=== PATIENT | male | born 1960 | race Caucasian/White ===

== ENCOUNTER 2017-07-28 10:08 | Day surgery (SDC) | payer OTHER ==
[2017-07-28 11:07] LABS: ADD MAN DIFF? NO
[2017-07-28 11:15] LABS: BASOPHILS % 0.4 % (0.0-2.0); EOSINOPHILS # 0.4 10^3/ul (0.0-0.5); EOSINOPHILS % 6.9 % (0.0-7.0); HEMATOCRIT 37.1 % (42.0-52.0); HEMOGLOBIN 12.4 g/dl (14.0-18.0); LYMPHOCYTES # 1.2 10^3/ul (0.8-2.9); LYMPHOCYTES % 23.7 % (15.0-51.0); MEAN CORPUSCULAR HEMOGLOBIN 31.8 pg (29.0-33.0); MEAN CORPUSCULAR HGB CONC 33.4 g/dl (32.0-37.0); MEAN CORPUSCULAR VOLUME 95.1 fl (82.0-101.0); MEAN PLATELET VOLUME 9.1 fl (7.4-10.4); MONOCYTE # 0.6 10^3/ul (0.3-0.9); MONOCYTES % 11.1 % (0.0-11.0); NEUTROPHIL # 2.9 10^3/ul (1.6-7.5); NEUTROPHILS % 57.5 % (39.0-77.0); PLATELET COUNT 146 10^3/UL (140-415); RED CELL DISTRIBUTION WIDTH 12.7 % (11.5-14.5)
[2017-07-28 11:15] LABS: WHITE BLOOD COUNT 5.1 10^3/ul (4.8-10.8)
[2017-07-28 11:21] LABS: ALANINE AMINOTRANSFERASE 14 IU/L (13-69); ALBUMIN 4.2 g/dl (3.3-4.9); ALBUMIN/GLOBULIN RATIO 1.16; ALKALINE PHOSPHATASE 76 IU/L (42-121); ANION GAP 22 (8-16); ASPARTATE AMINO TRANSFERASE 13 IU/L (15-46); BILIRUBIN,INDIRECT 0.5 mg/dl (0-1.1); BILIRUBIN,TOTAL 0.5 mg/dl (0.2-1.3); CARBON DIOXIDE 30 mmol/L (21-31); CHLORIDE 98 mmol/L (97-110); GLUCOSE 84 mg/dl (70-220); TOTAL PROTEIN 7.8 g/dl (6.1-8.1)
[2017-07-28 11:28] LABS: POTASSIUM 4.6 mmol/L (3.5-5.1)
[2017-07-28 11:31] LABS: BLOOD UREA NITROGEN 40 mg/dl (7-20); CALCIUM 7.8 mg/dl (8.4-10.2); CREATININE 7.85 mg/dl (0.61-1.24); SODIUM 145 mmol/L (135-144)
[2017-07-28] MEDS ORDERED: HEPARIN 1000 UNITS/NS (A-LINE) 1,000 ML (12:08)
[2017-07-28] MEDS ORDERED: MIDAZOLAM 1 MG/ML 2 ML INJ (12:08)
[2017-07-28] MEDS ORDERED: FENTAnyl 50 MCG/ML VIAL (12:08)
[2017-07-28] MEDS ORDERED: LIDOCAINE 1% (MDV) 20 ML INJ (12:08)
[2017-07-28] MEDS ORDERED: IODIXANOL LOCM 100 ML BTL (12:09)
[2017-07-28 12:11] LABS: INR 0.98; PROTIME 13.1 Sec (11.9-14.9)
[2017-07-28 12:12] LABS: PARTIAL THROMBOPLASTIN TIME 30.8 Sec (25.0-35.0)
== END 2017-07-28 13:25 | disposition home or self-care (01) ==
LOC: SDS 10:08
DX: T82.898A Other specified complication of vascular prosthetic devices, implants and grafts, initial encounter (principal); Y84.1 Kidney dialysis as the cause of abnormal reaction of the patient, or of later complication, without mention of misadventure at the time of the procedure; I12.0 Hypertensive chronic kidney disease with stage 5 chronic kidney disease or end stage renal disease; N18.6 End stage renal disease
CPT/HCPCS: 36901; 36907; 80053; 85025; 85610; 85730

== ENCOUNTER 2017-09-25 13:37 | Emergency (ER) | payer OTHER ==
[2017-09-25] MEDS: DIPHTH/TET/ACEL PERTUSS (ADULT) 0.5 ML VIAL IM (15:31)
== END 2017-09-25 15:37 | disposition home or self-care (01) ==
LOC: FTE 13:37
DX: S81.852A Open bite, left lower leg, initial encounter (principal); I50.9 Heart failure, unspecified; I12.9 Hypertensive chronic kidney disease with stage 1 through stage 4 chronic kidney disease, or unspecified chronic kidney disease; N18.9 Chronic kidney disease, unspecified; N18.6 End stage renal disease; W54.0XXA Bitten by dog, initial encounter; Y92.9 Unspecified place or not applicable; Z23 Encounter for immunization
CPT/HCPCS: 90471; 90715; 99283-25

== ENCOUNTER 2018-02-07 17:29 | Emergency (ER) | payer OTHER ==
[2018-02-07 17:52] LABS: ADD MAN DIFF? NO
[2018-02-07 18:03] LABS: BASOPHILS % 0.6 % (0.0-2.0); EOSINOPHILS # 0.3 10^3/ul (0.0-0.5); EOSINOPHILS % 4.6 % (0.0-7.0); HEMATOCRIT 47.3 % (42.0-52.0); HEMOGLOBIN 15.3 g/dl (14.0-18.0); LYMPHOCYTES # 1.2 10^3/ul (0.8-2.9); LYMPHOCYTES % 22.9 % (15.0-51.0); MEAN CORPUSCULAR HEMOGLOBIN 30.8 pg (29.0-33.0); MEAN CORPUSCULAR HGB CONC 32.3 g/dl (32.0-37.0); MEAN CORPUSCULAR VOLUME 95.2 fl (82.0-101.0); MEAN PLATELET VOLUME 9.9 fl (7.4-10.4); MONOCYTE # 0.5 10^3/ul (0.3-0.9); MONOCYTES % 9.9 % (0.0-11.0); NEUTROPHIL # 3.3 10^3/ul (1.6-7.5); NEUTROPHILS % 61.8 % (39.0-77.0); PLATELET COUNT 133 10^3/UL (140-415); RED BLOOD COUNT 4.97 10^6/ul (4.70-6.10); RED CELL DISTRIBUTION WIDTH 13.1 % (11.5-14.5)
[2018-02-07 18:03] LABS: WHITE BLOOD COUNT 5.4 10^3/ul (4.8-10.8)
[2018-02-07 18:19] LABS: PROTIME 13.3 Sec (11.9-14.9)
[2018-02-07 18:28] LABS: ALANINE AMINOTRANSFERASE 15 IU/L (13-69); ALBUMIN 5.2 g/dl (3.3-4.9); ALBUMIN/GLOBULIN RATIO 2.47; ALKALINE PHOSPHATASE 96 IU/L (42-121); ANION GAP 21 (5-13); ASPARTATE AMINO TRANSFERASE 15 IU/L (15-46); BILIRUBIN,INDIRECT 0.2 mg/dl (0-1.1); BILIRUBIN,TOTAL 0.2 mg/dl (0.2-1.3); BLOOD UREA NITROGEN 69 mg/dl (7-20); CALCIUM 7.6 mg/dl (8.4-10.2); CARBON DIOXIDE 25 mmol/L (21-31); CHLORIDE 96 mmol/L (97-110); CREATININE 11.38 mg/dl (0.61-1.24); Estimated GFR 5 mL/min (>60); GLUCOSE 98 mg/dl (70-220); SODIUM 142 mmol/L (135-144); TOTAL PROTEIN 7.3 g/dl (6.1-8.1)
[2018-02-07 18:38] LABS: TROPONIN-I 0.036 ng/ml (0.000-0.120)
== END 2018-02-07 19:41 | disposition home or self-care (01) ==
LOC: E/R 17:29
DX: I47.1 Supraventricular tachycardia (principal); I12.0 Hypertensive chronic kidney disease with stage 5 chronic kidney disease or end stage renal disease; N18.6 End stage renal disease; Z99.2 Dependence on renal dialysis
CPT/HCPCS: 71045; 80053; 84484; 85025; 85610; 99285-25

== ENCOUNTER 2018-05-03 12:05 | Inpatient (IN) | payer OTHER ==
[2018-05-03 13:05] LABS: ADD MAN DIFF? NO
[2018-05-03] MEDS: DILTIAZEM 25 MG INJ IV (13:18)
[2018-05-03 13:19] LABS: BASOPHILS % 0.5 % (0.0-2.0); EOSINOPHILS # 0.3 10^3/ul (0.0-0.5); EOSINOPHILS % 5.7 % (0.0-7.0); HEMATOCRIT 47.2 % (42.0-52.0); HEMOGLOBIN 15.5 g/dl (14.0-18.0); LYMPHOCYTES # 1.3 10^3/ul (0.8-2.9); MEAN CORPUSCULAR HEMOGLOBIN 30.3 pg (29.0-33.0); MEAN CORPUSCULAR HGB CONC 32.8 g/dl (32.0-37.0); MEAN CORPUSCULAR VOLUME 92.4 fl (82.0-101.0); MEAN PLATELET VOLUME 10.2 fl (7.4-10.4); MONOCYTE # 0.6 10^3/ul (0.3-0.9); MONOCYTES % 9.4 % (0.0-11.0); NEUTROPHIL # 3.7 10^3/ul (1.6-7.5); NEUTROPHILS % 62.2 % (39.0-77.0); PLATELET COUNT 153 10^3/UL (140-415); RED BLOOD COUNT 5.11 10^6/ul (4.70-6.10); RED CELL DISTRIBUTION WIDTH 13.4 % (11.5-14.5)
[2018-05-03 13:35] LABS: INR 0.91; PROTIME 12.4 Sec (11.9-14.9)
[2018-05-03 13:39] LABS: ALANINE AMINOTRANSFERASE 10 IU/L (13-69); ALBUMIN 4.5 g/dl (3.3-4.9); ALKALINE PHOSPHATASE 101 IU/L (42-121); ASPARTATE AMINO TRANSFERASE 17 IU/L (15-46); BILIRUBIN,INDIRECT 0.5 mg/dl (0-1.1); BILIRUBIN,TOTAL 0.5 mg/dl (0.2-1.3); LIPASE 319 U/L (23-300); TOTAL PROTEIN 7.8 g/dl (6.1-8.1)
[2018-05-03 13:40] LABS: ANION GAP 22 (5-13); BLOOD UREA NITROGEN 68 mg/dl (7-20); CALCIUM 7.7 mg/dl (8.4-10.2); CARBON DIOXIDE 19 mmol/L (21-31); CHLORIDE 102 mmol/L (97-110); CREATININE 12.68 mg/dl (0.61-1.24); Estimated GFR 4 mL/min (>60); GLUCOSE 84 mg/dl (70-220); POTASSIUM 4.8 mmol/L (3.5-5.1); SODIUM 143 mmol/L (135-144)
[2018-05-03 13:50] LABS: TROPONIN-I 0.047 ng/ml (0.000-0.120)
[2018-05-03 13:52] LABS: PHOSPHORUS 12.7 mg/dl (2.5-4.9)
[2018-05-03 13:52] LABS: MAGNESIUM 1.9 mg/dl (1.7-2.5)
[2018-05-03] MEDS: DILTIAZEM-D5W 125MG/125ML DRIP 125 ML IV (13:53)
[2018-05-03 14:15] LABS: B-TYPE NATRIURETIC PEPTIDE 61600 PG/ML (0-125)
[2018-05-03] MEDS ORDERED: ONDANSETRON 4 MG INJ IV (14:30)
[2018-05-03] MEDS ORDERED: ACETAMINOPHEN 325 MG TAB PO (14:30)
[2018-05-03] MEDS ORDERED: NACL 0.9% 3 ML SYG IV (15:30)
[2018-05-03] MEDS ORDERED: DILTIAZEM-D5W 125MG/125ML DRIP 125 ML IV (15:30)
[2018-05-03 15:42] LABS: CREATINE KINASE 113 IU/L (23-200)
[2018-05-03 15:53] LABS: CK-MB 1.78 ng/ml (0.0-2.4)
[2018-05-03 16:10] LABS: ADD MAN DIFF? NO
[2018-05-03 16:13] LABS: BASOPHILS % 0.7 % (0.0-2.0); EOSINOPHILS # 0.3 10^3/ul (0.0-0.5); EOSINOPHILS % 5.2 % (0.0-7.0); HEMATOCRIT 48.4 % (42.0-52.0); HEMOGLOBIN 15.6 g/dl (14.0-18.0); LYMPHOCYTES % 17.9 % (15.0-51.0); MEAN CORPUSCULAR HEMOGLOBIN 29.8 pg (29.0-33.0); MEAN CORPUSCULAR HGB CONC 32.2 g/dl (32.0-37.0); MEAN CORPUSCULAR VOLUME 92.5 fl (82.0-101.0); MEAN PLATELET VOLUME 9.1 fl (7.4-10.4); MONOCYTE # 0.5 10^3/ul (0.3-0.9); MONOCYTES % 7.9 % (0.0-11.0); PLATELET COUNT 131 10^3/UL (140-415); RED BLOOD COUNT 5.23 10^6/ul (4.70-6.10); RED CELL DISTRIBUTION WIDTH 13.5 % (11.5-14.5)
[2018-05-03 16:13] LABS: WHITE BLOOD COUNT 5.8 10^3/ul (4.8-10.8)
[2018-05-03] MEDS: ASPIRIN 81 MG TAB PO (16:15)
[2018-05-03] MEDS: METOPROLOL 50 MG TAB PO ×2 (16:15→22:00)
[2018-05-03 16:29] LABS: INR 0.96; PROTIME 12.9 Sec (11.9-14.9)
[2018-05-03 16:30] LABS: PARTIAL THROMBOPLASTIN TIME 28.4 Sec (23.0-35.0)
[2018-05-03 16:32] LABS: CREATINE KINASE 140 IU/L (23-200)
[2018-05-03 16:44] LABS: CK INDEX 6.3
[2018-05-03 16:48] LABS: CK-MB 8.81 ng/ml (0.0-2.4); TROPONIN-I 0.675 ng/ml (0.000-0.120)
[2018-05-03] MEDS: HEPARIN 25000 UNITS/250 ML 250 ML IV (20:28)
[2018-05-03] MEDS: ATORVASTATIN 20 MG TAB PO (20:50)
[2018-05-03 21:12] LABS: CREATINE KINASE 214 IU/L (23-200)
[2018-05-03 21:25] LABS: CK INDEX 10.4
[2018-05-04 01:14] LABS: CREATINE KINASE 229 IU/L (23-200)
[2018-05-04 01:27] LABS: CK INDEX 9.3
[2018-05-04 03:30] LABS: PARTIAL THROMBOPLASTIN TIME 44.7 Sec (23.0-35.0)
[2018-05-04] MEDS: ZOLPIDEM 5 MG TAB PO (03:35)
[2018-05-04 03:37] LABS: HEMOGLOBIN A1C 4.8 % (0-5.9)
[2018-05-04] MEDS: HEPARIN 1000 UNITS/ML 10 ML INJ IV (03:43)
[2018-05-04] MEDS: HEPARIN 25000 UNITS/250 ML 250 ML IV (03:45)
[2018-05-04] MEDS: METOPROLOL 50 MG TAB PO ×2 (06:00→09:00)
[2018-05-04] MEDS: CALCIUM ACETATE 667 MG CAP GTB ×3 (07:45→17:27)
[2018-05-04] MEDS: SEVELAMER CARBONATE 800 MG TABLET PO ×3 (07:45→17:27)
[2018-05-04] MEDS ORDERED: CINACALCET 30 MG TAB PO (09:00)
[2018-05-04] MEDS ORDERED: ENOXAPARIN 40 MG/0.4 ML SYG SC (09:00)
[2018-05-04] MEDS: ASPIRIN 81 MG TAB PO (09:44)
[2018-05-04 11:48] LABS: HEPATITIS B SURFACE ANTIGEN NEGATIVE (NEGATIVE)
[2018-05-04 12:05] LABS: HEPATITIS B SURFACE ANTIBODY NEGATIVE (NEGATIVE)
[2018-05-04] MEDS ORDERED: FENTAnyl 50 MCG/ML VIAL (15:21)
[2018-05-04] MEDS ORDERED: MIDAZOLAM 1 MG/ML 2 ML INJ (15:21)
[2018-05-04] MEDS ORDERED: NITROGLYCERIN (IC) 100 MCG/ML INJ (16:08)
[2018-05-04] MEDS ORDERED: HEPARIN 1000 UNITS/ML 10 ML INJ (16:08)
[2018-05-04] MEDS ORDERED: VERAPAMIL 5 MG INJ (16:10)
[2018-05-04] MEDS ORDERED: CLOPIDOGREL 300 MG TAB (16:12)
[2018-05-04] MEDS ORDERED: HEPARIN 1000 UNITS/NS (A-LINE) 2,000 ML (16:56)
[2018-05-04] MEDS ORDERED: SOD CHLORIDE 0.9% 500 ML (16:57)
[2018-05-04] MEDS: SOD CHLORIDE 0.9% 1,000 ML IV (21:10)
[2018-05-04] MEDS: ATORVASTATIN 40 MG TAB PO (21:59)
[2018-05-05] MEDS: ZOLPIDEM 5 MG TAB PO (00:34)
[2018-05-05 06:10] LABS: ADD MAN DIFF? NO
[2018-05-05 06:17] LABS: BASOPHILS % 0.6 % (0.0-2.0); EOSINOPHILS # 0.4 10^3/ul (0.0-0.5); EOSINOPHILS % 8.2 % (0.0-7.0); HEMATOCRIT 45.2 % (42.0-52.0); HEMOGLOBIN 14.5 g/dl (14.0-18.0); LYMPHOCYTES # 0.9 10^3/ul (0.8-2.9); MEAN CORPUSCULAR HEMOGLOBIN 30.4 pg (29.0-33.0); MEAN CORPUSCULAR HGB CONC 32.1 g/dl (32.0-37.0); MEAN CORPUSCULAR VOLUME 94.8 fl (82.0-101.0); MEAN PLATELET VOLUME 9.6 fl (7.4-10.4); MONOCYTE # 0.4 10^3/ul (0.3-0.9); MONOCYTES % 9.4 % (0.0-11.0); NEUTROPHIL # 2.9 10^3/ul (1.6-7.5); NEUTROPHILS % 61.4 % (39.0-77.0); PLATELET COUNT 120 10^3/UL (140-415); RED BLOOD COUNT 4.77 10^6/ul (4.70-6.10); RED CELL DISTRIBUTION WIDTH 13.2 % (11.5-14.5)
[2018-05-05 06:17] LABS: WHITE BLOOD COUNT 4.7 10^3/ul (4.8-10.8)
[2018-05-05 06:39] LABS: CREATINE KINASE 112 IU/L (23-200)
[2018-05-05 06:52] LABS: CK INDEX 5.3
[2018-05-05 07:04] LABS: ALANINE AMINOTRANSFERASE 16 IU/L (13-69); ALBUMIN 3.6 g/dl (3.3-4.9); ALKALINE PHOSPHATASE 79 IU/L (42-121); ANION GAP 17 (5-13); ASPARTATE AMINO TRANSFERASE 22 IU/L (15-46); BILIRUBIN,INDIRECT 0.5 mg/dl (0-1.1); BILIRUBIN,TOTAL 0.5 mg/dl (0.2-1.3); BLOOD UREA NITROGEN 49 mg/dl (7-20); CALCIUM 7.7 mg/dl (8.4-10.2); CARBON DIOXIDE 30 mmol/L (21-31); CHLORIDE 92 mmol/L (97-110); CHOL/HDL RATIO 5.6 RATIO; CHOLESTEROL 175 mg/dl (100-200); CREATININE 10.54 mg/dl (0.61-1.24); Estimated GFR 5 mL/min (>60); GLUCOSE 70 mg/dl (70-220); HDL CHOLESTEROL 31 mg/dl (28-71); LDL CHOLESTEROL,CALCULATED 118 mg/dl; MAGNESIUM 1.9 mg/dl (1.7-2.5); POTASSIUM 4.4 mmol/L (3.5-5.1); SODIUM 139 mmol/L (135-144); TOTAL PROTEIN 6.6 g/dl (6.1-8.1); TRIGLYCERIDES 130 mg/dl (0-149)
[2018-05-05 07:11] LABS: CK-MB 5.98 ng/ml (0.0-2.4)
[2018-05-05] MEDS: LISINOPRIL 5 MG TAB PO ×2 (08:11→22:31)
[2018-05-05] MEDS: ASPIRIN 81 MG TAB PO (08:12)
[2018-05-05] MEDS: CALCIUM ACETATE 667 MG CAP GTB ×3 (08:13→17:19)
[2018-05-05] MEDS: SEVELAMER CARBONATE 800 MG TABLET PO ×3 (08:13→17:19)
[2018-05-05] MEDS: APIXABAN 5 MG TABLET PO ×2 (13:37→22:27)
[2018-05-05] MEDS: RANOLAZINE (SR) 500 MG TAB PO (22:27)
[2018-05-05] MEDS: ATORVASTATIN 40 MG TAB PO (22:30)
[2018-05-06] MEDS: ZOLPIDEM 5 MG TAB PO (00:56)
[2018-05-06 06:28] LABS: ADD MAN DIFF? NO
[2018-05-06 06:45] LABS: WHITE BLOOD COUNT 5.1 10^3/ul (4.8-10.8)
[2018-05-06 06:45] LABS: BASOPHILS % 0.6 % (0.0-2.0); EOSINOPHILS # 0.4 10^3/ul (0.0-0.5); EOSINOPHILS % 8.2 % (0.0-7.0); HEMATOCRIT 44.2 % (42.0-52.0); HEMOGLOBIN 14.2 g/dl (14.0-18.0); LYMPHOCYTES # 1.1 10^3/ul (0.8-2.9); MEAN CORPUSCULAR HEMOGLOBIN 30.5 pg (29.0-33.0); MEAN CORPUSCULAR HGB CONC 32.1 g/dl (32.0-37.0); MEAN CORPUSCULAR VOLUME 94.8 fl (82.0-101.0); MEAN PLATELET VOLUME 9.6 fl (7.4-10.4); MONOCYTE # 0.7 10^3/ul (0.3-0.9); MONOCYTES % 12.7 % (0.0-11.0); NEUTROPHIL # 2.9 10^3/ul (1.6-7.5); NEUTROPHILS % 57.3 % (39.0-77.0); PLATELET COUNT 116 10^3/UL (140-415); RED BLOOD COUNT 4.66 10^6/ul (4.70-6.10); RED CELL DISTRIBUTION WIDTH 13.1 % (11.5-14.5)
[2018-05-06 07:22] LABS: ANION GAP 9 (5-13); BLOOD UREA NITROGEN 42 mg/dl (7-20); CARBON DIOXIDE 35 mmol/L (21-31); CHLORIDE 96 mmol/L (97-110); CREATININE 9.07 mg/dl (0.61-1.24); Estimated GFR 6 mL/min (>60); GLUCOSE 82 mg/dl (70-220); POTASSIUM 4.4 mmol/L (3.5-5.1); SODIUM 140 mmol/L (135-144)
[2018-05-06 07:27] LABS: PHOSPHORUS 8.3 mg/dl (2.5-4.9)
[2018-05-06 07:27] LABS: MAGNESIUM 1.9 mg/dl (1.7-2.5)
[2018-05-06] MEDS: SEVELAMER CARBONATE 800 MG TABLET PO ×2 (08:15→12:33)
[2018-05-06] MEDS: CALCIUM ACETATE 667 MG CAP GTB ×2 (08:15→12:37)
[2018-05-06] MEDS: APIXABAN 5 MG TABLET PO (08:16)
[2018-05-06] MEDS: LISINOPRIL 5 MG TAB PO (08:17)
[2018-05-06] MEDS: FAMOTIDINE 20 MG TAB PO (08:25)
[2018-05-06] MEDS: RANOLAZINE (SR) 500 MG TAB PO (08:25)
[2018-05-06] MEDS: CLOPIDOGREL 75 MG TAB PO (08:25)
[2018-05-06 09:53] LABS: URIC ACID 4.2 mg/dl (3.1-7.9)
== END 2018-05-06 15:36 | disposition home or self-care (01) | DRG 250 ==
LOC: E/R 12:05 → 6WM 17:54 → TEL 05-05 19:18 → ICU 05-04 17:57 → 6WM 14:16
PROC: 02703ZZ Dilation of Coronary Artery, One Artery, Percutaneous Approach (ICD-10-PCS; principal; 2018-05-04 15:10)
PROC: 4A023N7 Measurement of Cardiac Sampling and Pressure, Left Heart, Percutaneous Approach (ICD-10-PCS; 2018-05-04 15:10)
PROC: B211YZZ Fluoroscopy of Multiple Coronary Arteries using Other Contrast (ICD-10-PCS; 2018-05-04 15:10)
PROC: 5A1D70Z Performance of Urinary Filtration, Intermittent, Less than 6 Hours Per Day (ICD-10-PCS; 2018-05-04 15:10)
DX: I21.4 Non-ST elevation (NSTEMI) myocardial infarction (principal); N18.6 End stage renal disease; I50.23 Acute on chronic systolic (congestive) heart failure; N25.81 Secondary hyperparathyroidism of renal origin; I13.2 Hypertensive heart and chronic kidney disease with heart failure and with stage 5 chronic kidney disease, or end stage renal disease; I25.10 Atherosclerotic heart disease of native coronary artery without angina pectoris; I48.0 Paroxysmal atrial fibrillation; Z99.2 Dependence on renal dialysis; E83.39 Other disorders of phosphorus metabolism; I25.5 Ischemic cardiomyopathy; F41.9 Anxiety disorder, unspecified; I25.82 Chronic total occlusion of coronary artery; E66.9 Obesity, unspecified; Z68.30 Body mass index [BMI] 30.0-30.9, adult
CPT/HCPCS: 36415; 71045; 80048; 80053; 80061; 80076; 82550; 82553; 83036; 83690; 83735; 83880; 84100; 84439; 84443; 84484; 84560; 85025; 85610; 85730; 86706; 87081; 87340; 90935; 92920; 93005; 93306; 93458; 96374; 96375; 99291-25

== ENCOUNTER 2018-05-18 22:44 | Emergency (ER) | payer OTHER ==
[2018-05-19 01:12] LABS: ADD MAN DIFF? NO
[2018-05-19 01:14] LABS: WHITE BLOOD COUNT 5.4 10^3/ul (4.8-10.8)
[2018-05-19 01:14] LABS: BASOPHIL # 0.1 10^3/ul (0.0-0.1); BASOPHILS % 0.9 % (0.0-2.0); EOSINOPHILS # 0.3 10^3/ul (0.0-0.5); EOSINOPHILS % 5.7 % (0.0-7.0); HEMATOCRIT 44.5 % (42.0-52.0); HEMOGLOBIN 14.3 g/dl (14.0-18.0); LYMPHOCYTES # 1.2 10^3/ul (0.8-2.9); LYMPHOCYTES % 22.4 % (15.0-51.0); MEAN CORPUSCULAR HEMOGLOBIN 30.3 pg (29.0-33.0); MEAN CORPUSCULAR HGB CONC 32.1 g/dl (32.0-37.0); MEAN CORPUSCULAR VOLUME 94.3 fl (82.0-101.0); MEAN PLATELET VOLUME 9.4 fl (7.4-10.4); MONOCYTE # 0.7 10^3/ul (0.3-0.9); MONOCYTES % 12.1 % (0.0-11.0); NEUTROPHIL # 3.2 10^3/ul (1.6-7.5); NEUTROPHILS % 58.5 % (39.0-77.0); PLATELET COUNT 171 10^3/UL (140-415); RED BLOOD COUNT 4.72 10^6/ul (4.70-6.10); RED CELL DISTRIBUTION WIDTH 12.9 % (11.5-14.5)
[2018-05-19 01:31] LABS: ALANINE AMINOTRANSFERASE 16 IU/L (13-69); ALBUMIN 4.1 g/dl (3.3-4.9); ALBUMIN/GLOBULIN RATIO 1.24; ALKALINE PHOSPHATASE 91 IU/L (42-121); ANION GAP 14 (5-13); ASPARTATE AMINO TRANSFERASE 18 IU/L (15-46); BILIRUBIN,INDIRECT 0.3 mg/dl (0-1.1); BILIRUBIN,TOTAL 0.3 mg/dl (0.2-1.3); BLOOD UREA NITROGEN 51 mg/dl (7-20); CALCIUM 9.1 mg/dl (8.4-10.2); CARBON DIOXIDE 28 mmol/L (21-31); CHLORIDE 99 mmol/L (97-110); Estimated GFR 5 mL/min (>60); GLUCOSE 79 mg/dl (70-220); LIPASE 257 U/L (23-300); POTASSIUM 5.2 mmol/L (3.5-5.1); SODIUM 141 mmol/L (135-144); TOTAL PROTEIN 7.4 g/dl (6.1-8.1)
[2018-05-19] MEDS: ONDANSETRON 4 MG INJ IV (02:26)
[2018-05-19] MEDS: ACETAMINOPHEN 325 MG TAB PO ×2 (02:27→02:32)
[2018-05-19 03:46] LABS: MODE ROOM AIR; MetHgb Venous 0.4 %; Sample Type Blood venous; Site VENOUS LINE; Venous Fraction OxyHgb 38.1 %; Venous Oxygen Sat 38.6 mmHG (55.0-75.0); Venous Total Hemglobin 16.1 g/dl
== END 2018-05-19 04:00 | disposition home or self-care (01) ==
LOC: E/R 22:44
DX: E87.5 Hyperkalemia (principal); I12.9 Hypertensive chronic kidney disease with stage 1 through stage 4 chronic kidney disease, or unspecified chronic kidney disease; N18.9 Chronic kidney disease, unspecified; I25.10 Atherosclerotic heart disease of native coronary artery without angina pectoris; I11.0 Hypertensive heart disease with heart failure; I50.9 Heart failure, unspecified; Z99.2 Dependence on renal dialysis; Z98.61 Coronary angioplasty status; Z79.01 Long term (current) use of anticoagulants
CPT/HCPCS: 36415; 71045; 80053; 82803; 83690; 85025; 93005; 96374; 99285-25

== ENCOUNTER 2018-06-05 04:13 | Observation (INO) | payer OTHER ==
[2018-06-05] MEDS ORDERED: DILTIAZEM 25 MG INJ (04:39)
[2018-06-05 04:40] LABS: ADD MAN DIFF? NO
[2018-06-05] MEDS: DILTIAZEM 25 MG INJ IV (04:41)
[2018-06-05] MEDS: SOD CHLORIDE 0.9% 500 ML IV (04:41)
[2018-06-05 04:42] LABS: WHITE BLOOD COUNT 7.8 10^3/ul (4.8-10.8)
[2018-06-05 04:42] LABS: BASOPHIL # 0.1 10^3/ul (0.0-0.1); BASOPHILS % 0.6 % (0.0-2.0); EOSINOPHILS # 0.5 10^3/ul (0.0-0.5); EOSINOPHILS % 6.6 % (0.0-7.0); HEMATOCRIT 44.3 % (42.0-52.0); HEMOGLOBIN 14.2 g/dl (14.0-18.0); LYMPHOCYTES # 1.5 10^3/ul (0.8-2.9); LYMPHOCYTES % 18.9 % (15.0-51.0); MEAN CORPUSCULAR HEMOGLOBIN 29.7 pg (29.0-33.0); MEAN CORPUSCULAR HGB CONC 32.1 g/dl (32.0-37.0); MEAN CORPUSCULAR VOLUME 92.7 fl (82.0-101.0); MEAN PLATELET VOLUME 9.7 fl (7.4-10.4); MONOCYTE # 0.6 10^3/ul (0.3-0.9); MONOCYTES % 8.1 % (0.0-11.0); NEUTROPHIL # 5.1 10^3/ul (1.6-7.5); NEUTROPHILS % 65.5 % (39.0-77.0); PLATELET COUNT 159 10^3/UL (140-415); RED BLOOD COUNT 4.78 10^6/ul (4.70-6.10); RED CELL DISTRIBUTION WIDTH 13.4 % (11.5-14.5)
[2018-06-05 05:03] LABS: ALANINE AMINOTRANSFERASE 16 IU/L (13-69); ALBUMIN 4.6 g/dl (3.3-4.9); ALBUMIN/GLOBULIN RATIO 1.43; ALKALINE PHOSPHATASE 138 IU/L (42-121); ANION GAP 22 (5-13); ASPARTATE AMINO TRANSFERASE 17 IU/L (15-46); BILIRUBIN,INDIRECT 0.5 mg/dl (0-1.1); BILIRUBIN,TOTAL 0.5 mg/dl (0.2-1.3); BLOOD UREA NITROGEN 68 mg/dl (7-20); CALCIUM 8.2 mg/dl (8.4-10.2); CARBON DIOXIDE 24 mmol/L (21-31); CHLORIDE 97 mmol/L (97-110); CREATININE 11.56 mg/dl (0.61-1.24); Estimated GFR 5 mL/min (>60); GLUCOSE 103 mg/dl (70-220); LIPASE 311 U/L (23-300); POTASSIUM 4.6 mmol/L (3.5-5.1); SODIUM 143 mmol/L (135-144); TOTAL PROTEIN 7.8 g/dl (6.1-8.1)
[2018-06-05 05:13] LABS: TROPONIN-I 0.086 ng/ml (0.000-0.120)
[2018-06-05 05:27] LABS: B-TYPE NATRIURETIC PEPTIDE 105000 PG/ML (0-125)
[2018-06-05] MEDS: DILTIAZEM-D5W 125MG/125ML DRIP 125 ML IV (06:04)
[2018-06-05 08:04] LABS: FREE T3 3.41 pg/ml (2.77-5.27)
[2018-06-05 08:27] LABS: FREE T4 (FREE THYROXINE) 1.19 ng/dl (0.64-1.79)
[2018-06-05] MEDS ORDERED: ZOLPIDEM 5 MG TAB PO (10:00)
[2018-06-05] MEDS: LISINOPRIL 5 MG TAB PO ×2 (10:42→21:00)
[2018-06-05] MEDS: RANOLAZINE (SR) 500 MG TAB PO ×2 (10:43→21:00)
[2018-06-05] MEDS: CINACALCET 30 MG TAB PO (10:43)
[2018-06-05 11:02] LABS: TROPONIN-I 0.137 ng/ml (0.000-0.120)
[2018-06-05] MEDS: CLOPIDOGREL 75 MG TAB PO (11:45)
[2018-06-05] MEDS: FAMOTIDINE 20 MG TAB PO (11:45)
[2018-06-05] MEDS: CALCIUM ACETATE 667 MG CAP PO ×2 (12:18→18:55)
[2018-06-05] MEDS: SEVELAMER CARBONATE 0.8 GM PKT PO (12:19)
[2018-06-05] MEDS: ONDANSETRON 4 MG INJ IV (16:18)
[2018-06-05 17:44] LABS: HEPATITIS B SURFACE ANTIGEN NEGATIVE (NEGATIVE)
[2018-06-05 18:43] LABS: CREATINE KINASE 102 IU/L (23-200)
[2018-06-05 18:55] LABS: CK INDEX 2.1; CK-MB 2.15 ng/ml (0.0-2.4)
[2018-06-05 18:56] LABS: TROPONIN-I 0.461 ng/ml (0.000-0.120)
[2018-06-05] MEDS: METOPROLOL (XL) 50 MG TAB PO ×2 (18:56→21:00)
[2018-06-05] MEDS ORDERED: HYDROCODONE/APAP (5/325) TAB PO (19:30)
[2018-06-05] MEDS: ATORVASTATIN 40 MG TAB PO (21:10)
[2018-06-05] MEDS: APIXABAN 5 MG TABLET PO (21:10)
[2018-06-06] MEDS ORDERED: SEVELAMER CARBONATE 2.4 GM PKT PO (08:00)
[2018-06-06] MEDS: CINACALCET 30 MG TAB PO (08:10)
[2018-06-06] MEDS: APIXABAN 5 MG TABLET PO (08:10)
[2018-06-06] MEDS: RANOLAZINE (SR) 500 MG TAB PO (08:10)
[2018-06-06] MEDS: FAMOTIDINE 20 MG TAB PO (08:10)
[2018-06-06] MEDS: CALCIUM ACETATE 667 MG CAP PO ×2 (08:10→12:05)
[2018-06-06] MEDS: LISINOPRIL 5 MG TAB PO (08:36)
[2018-06-06] MEDS: METOPROLOL (XL) 50 MG TAB PO (08:36)
[2018-06-06] MEDS: SEVELAMER CARBONATE 2.4 GM PKT PO ×2 (09:36→12:00)
[2018-06-06] MEDS: ONDANSETRON 4 MG INJ IV (10:20)
== END 2018-06-06 14:42 | disposition home or self-care (01) ==
LOC: E/R 04:13 → 6WM 06:52
DX: I48.2 Chronic atrial fibrillation (principal); I25.10 Atherosclerotic heart disease of native coronary artery without angina pectoris; I25.82 Chronic total occlusion of coronary artery; I12.0 Hypertensive chronic kidney disease with stage 5 chronic kidney disease or end stage renal disease; N18.6 End stage renal disease; Z99.2 Dependence on renal dialysis; E78.5 Hyperlipidemia, unspecified; Z79.01 Long term (current) use of anticoagulants; Z79.02 Long term (current) use of antithrombotics/antiplatelets; R51 Headache
CPT/HCPCS: 36415; 70486; 71045; 80053; 82550; 82553; 83690; 83880; 84439; 84443; 84481; 84484; 85025; 87081; 87340; 90935; 93005; 96365; 96375; 99291-25; G0378

== ENCOUNTER 2018-10-27 13:46 | Inpatient (IN) | payer OTHER ==
[2018-10-27] MEDS ORDERED: AMIODARONE 150 MG INJ (13:53)
[2018-10-27] MEDS: AMIODARONE 150MG/D5W BOLUS 100 ML IV (13:57)
[2018-10-27 14:20] LABS: ADD MAN DIFF? NO
[2018-10-27 14:22] LABS: BASOPHILS % 0.8 % (0.0-2.0); EOSINOPHILS # 0.5 10^3/ul (0.0-0.5); EOSINOPHILS % 9.6 % (0.0-7.0); HEMATOCRIT 45.2 % (42.0-52.0); HEMOGLOBIN 14.5 g/dl (14.0-18.0); LYMPHOCYTES # 1.2 10^3/ul (0.8-2.9); LYMPHOCYTES % 23.1 % (15.0-51.0); MEAN CORPUSCULAR HEMOGLOBIN 30.3 pg (29.0-33.0); MEAN CORPUSCULAR HGB CONC 32.1 g/dl (32.0-37.0); MEAN CORPUSCULAR VOLUME 94.6 fl (82.0-101.0); MEAN PLATELET VOLUME 9.9 fl (7.4-10.4); MONOCYTE # 0.5 10^3/ul (0.3-0.9); NEUTROPHIL # 2.9 10^3/ul (1.6-7.5); NEUTROPHILS % 57.3 % (39.0-77.0); PLATELET COUNT 124 10^3/UL (140-415); RED BLOOD COUNT 4.78 10^6/ul (4.70-6.10); RED CELL DISTRIBUTION WIDTH 13.1 % (11.5-14.5)
[2018-10-27 14:34] LABS: ANION GAP 15 (5-13); BLOOD UREA NITROGEN 60 mg/dl (7-20); CALCIUM 9.3 mg/dl (8.4-10.2); CARBON DIOXIDE 27 mmol/L (21-31); CHLORIDE 96 mmol/L (97-110); CREATININE 8.74 mg/dl (0.61-1.24); Estimated GFR 6 mL/min (>60); GLUCOSE 228 mg/dl (70-220); POTASSIUM 4.6 mmol/L (3.5-5.1); SODIUM 138 mmol/L (135-144)
[2018-10-27 14:46] LABS: TROPONIN-I 0.027 ng/ml (0.000-0.120)
[2018-10-27] MEDS: AMIODARONE 900 MG in DEXTROSE 5% 482 ML IV (14:50)
[2018-10-27] MEDS: FAMOTIDINE 20 MG TAB PO (18:32)
[2018-10-27] MEDS: ASPIRIN (EC) 81 MG TAB PO (18:40)
[2018-10-27] MEDS: CALCIUM ACETATE 667 MG CAP PO (18:40)
[2018-10-27] MEDS: SEVELAMER CARBONATE 0.8 GM PKT PO (18:41)
[2018-10-27] MEDS: CINACALCET 30 MG TAB PO (19:41)
[2018-10-27 20:40] LABS: CREATINE KINASE 67 IU/L (23-200)
[2018-10-27] MEDS: RANOLAZINE (SR) 500 MG TAB PO (20:51)
[2018-10-27] MEDS: APIXABAN 5 MG TABLET PO (20:51)
[2018-10-27] MEDS: ATORVASTATIN 40 MG TAB PO (20:51)
[2018-10-27 20:52] LABS: CK INDEX 2.5; CK-MB 1.68 ng/ml (0.0-2.4); TROPONIN-I 0.059 ng/ml (0.000-0.120)
[2018-10-27 22:17] LABS: HEPATITIS B SURFACE ANTIGEN NEGATIVE (NEGATIVE)
[2018-10-28] MEDS: ZOLPIDEM 5 MG TAB PO (03:44)
[2018-10-28 04:57] LABS: ANION GAP 9 (5-13); BLOOD UREA NITROGEN 34 mg/dl (7-20); CALCIUM 9.6 mg/dl (8.4-10.2); CARBON DIOXIDE 31 mmol/L (21-31); CHLORIDE 99 mmol/L (97-110); CREATININE 5.84 mg/dl (0.61-1.24); Estimated GFR 10 mL/min (>60); GLUCOSE 97 mg/dl (70-220); POTASSIUM 3.9 mmol/L (3.5-5.1); SODIUM 139 mmol/L (135-144)
[2018-10-28 05:00] LABS: CREATINE KINASE 55 IU/L (23-200)
[2018-10-28 05:09] LABS: CK INDEX 3.2; CK-MB 1.75 ng/ml (0.0-2.4); TROPONIN-I 0.104 ng/ml (0.000-0.120)
[2018-10-28] MEDS: CALCIUM ACETATE 667 MG CAP PO ×3 (08:00→17:26)
[2018-10-28] MEDS: CINACALCET 30 MG TAB PO (08:23)
[2018-10-28] MEDS: ASPIRIN (EC) 81 MG TAB PO (08:24)
[2018-10-28] MEDS: FAMOTIDINE 20 MG TAB PO (08:24)
[2018-10-28] MEDS: RANOLAZINE (SR) 500 MG TAB PO ×2 (08:24→21:59)
[2018-10-28] MEDS: APIXABAN 5 MG TABLET PO ×2 (08:24→21:59)
[2018-10-28] MEDS: SEVELAMER CARBONATE 800 MG TABLET PO ×2 (11:44→17:26)
[2018-10-28] MEDS: AMIODARONE 200 MG TAB PO ×2 (14:35→23:44)
[2018-10-28] MEDS: ATORVASTATIN 40 MG TAB PO (22:00)
[2018-10-29] MEDS: ZOLPIDEM 5 MG TAB PO (01:09)
[2018-10-29 06:26] LABS: ADD MAN DIFF? NO
[2018-10-29 06:32] LABS: WHITE BLOOD COUNT 5.3 10^3/ul (4.8-10.8)
[2018-10-29 06:32] LABS: BASOPHILS % 0.7 % (0.0-2.0); EOSINOPHILS # 0.6 10^3/ul (0.0-0.5); EOSINOPHILS % 10.9 % (0.0-7.0); HEMATOCRIT 44.5 % (42.0-52.0); HEMOGLOBIN 14.4 g/dl (14.0-18.0); LYMPHOCYTES # 1.4 10^3/ul (0.8-2.9); LYMPHOCYTES % 25.5 % (15.0-51.0); MEAN CORPUSCULAR HEMOGLOBIN 30.7 pg (29.0-33.0); MEAN CORPUSCULAR HGB CONC 32.4 g/dl (32.0-37.0); MEAN CORPUSCULAR VOLUME 94.9 fl (82.0-101.0); MEAN PLATELET VOLUME 9.8 fl (7.4-10.4); MONOCYTE # 0.7 10^3/ul (0.3-0.9); MONOCYTES % 12.2 % (0.0-11.0); NEUTROPHIL # 2.7 10^3/ul (1.6-7.5); NEUTROPHILS % 50.5 % (39.0-77.0); PLATELET COUNT 122 10^3/UL (140-415); RED BLOOD COUNT 4.69 10^6/ul (4.70-6.10); RED CELL DISTRIBUTION WIDTH 13.3 % (11.5-14.5)
[2018-10-29 07:02] LABS: ANION GAP 13 (5-13); BLOOD UREA NITROGEN 56 mg/dl (7-20); CALCIUM 8.2 mg/dl (8.4-10.2); CARBON DIOXIDE 30 mmol/L (21-31); CHLORIDE 98 mmol/L (97-110); CREATININE 8.68 mg/dl (0.61-1.24); Estimated GFR 6 mL/min (>60); GLUCOSE 88 mg/dl (70-220); POTASSIUM 5.1 mmol/L (3.5-5.1); SODIUM 141 mmol/L (135-144)
[2018-10-29 07:17] LABS: MAGNESIUM 2.1 mg/dl (1.7-2.5)
[2018-10-29] MEDS: SEVELAMER CARBONATE 800 MG TABLET PO ×2 (08:32→12:31)
[2018-10-29] MEDS: CALCIUM ACETATE 667 MG CAP PO ×2 (08:33→12:31)
[2018-10-29] MEDS: ASPIRIN (EC) 81 MG TAB PO (08:34)
[2018-10-29] MEDS: RANOLAZINE (SR) 500 MG TAB PO (08:34)
[2018-10-29] MEDS: AMIODARONE 200 MG TAB PO (08:34)
[2018-10-29] MEDS: CINACALCET 30 MG TAB PO (08:35)
[2018-10-29] MEDS: APIXABAN 5 MG TABLET PO (08:35)
[2018-10-29] MEDS: FAMOTIDINE 20 MG TAB PO (08:35)
[2018-10-29] MEDS: ONDANSETRON 4 MG INJ IV (11:26)
[2018-10-29] MEDS: LISINOPRIL 5 MG TAB PO (14:10)
[2018-10-29] MEDS ORDERED: APIXABAN 5 MG TABLET PO (21:00)
== END 2018-10-29 15:30 | disposition home or self-care (01) | DRG 308 ==
LOC: TEL 10-28 18:47 → E/R 13:46 → ICU 14:52
PROC: 5A1D70Z Performance of Urinary Filtration, Intermittent, Less than 6 Hours Per Day (ICD-10-PCS; principal; 2018-10-27)
DX: I48.92 Unspecified atrial flutter (principal); N18.6 End stage renal disease; I12.0 Hypertensive chronic kidney disease with stage 5 chronic kidney disease or end stage renal disease; I47.2 Ventricular tachycardia; D69.6 Thrombocytopenia, unspecified; I25.10 Atherosclerotic heart disease of native coronary artery without angina pectoris; I25.5 Ischemic cardiomyopathy; G47.00 Insomnia, unspecified; I48.2 Chronic atrial fibrillation; Z99.2 Dependence on renal dialysis; Z79.82 Long term (current) use of aspirin; Z79.02 Long term (current) use of antithrombotics/antiplatelets; I25.2 Old myocardial infarction; Z91.19 Patient's noncompliance with other medical treatment and regimen
CPT/HCPCS: 71045; 80048; 82550; 82553; 83735; 84484; 85025; 87081; 87340; 90935; 93005; 93306; 96374; 96376; 99285-25